=== PATIENT | female | born 1985 | race American Indian/Alaskan Native ===

== ENCOUNTER 2017-12-24 08:42 | Outpatient (CLI) | payer MEDICAID ==
[2017-12-24 09:26] LABS: Bilirubin,Urine NEG (Negative); Blood,Urine NEG (Negative); Color,Urine Yellow (Yellow); Protein,Urine <15 mg/dL mg/dL (Negative); RBC,Urine < 1.0 /HPF (0.0-6.0); Urobilinogen,Urine < 2.0 mg/dL (<2.0)
[2017-12-24 09:29] VITALS: BP 121/68
[2017-12-24 09:39] LABS: Amphetamine Screen,Urine PRESUMPTIVE NEGATIVE; Benzodiazepines Screen,Urine PRESUMPTIVE NEGATIVE; Methadone Screen,Urine PRESUMPTIVE NEGATIVE; Opiate Screen,Urine PRESUMPTIVE NEGATIVE
[2017-12-24 09:56] LABS: Cannabinoid Screen,Urine PRESUMPTIVE POSITIVE; Cocaine Screen,Urine PRESUMPTIVE POSITIVE
== END 2017-12-24 09:53 | disposition home or self-care (01) ==
LOC: TRG 08:42
PROVIDERS: ATTEND Obstetrics & Gynecology
DX: O47.02 False labor before 37 completed weeks of gestation, second trimester (principal); Z3A.25 25 weeks gestation of pregnancy
CPT/HCPCS: 59025; 80307; 81001

== ENCOUNTER 2018-02-26 14:46 | Outpatient (CLI) | payer MEDICAID ==
[2018-02-26 15:03] VITALS: BP 117/75
--- NOTE | 2018-02-26 17:33 | Ultrasound Report ---
FINAL REPORT EXAM: US OB > = 14 WEEKS FETUS HISTORY: well being TECHNIQUE: Ultrasound obstetrical transabdominal PRIORS: Correlation made to prior exam August 23, 2017 FINDINGS: Single live intrauterine gestation present in cephalic position and cardiac activity present with heart rate of 145 beats per minute Cervical length is 3.1 centimeters In the placenta is anterior and right lateral. Placenta is grade 1. No evidence for placental abruption. Following structures were seen and appear unremarkable, choroid plexus and lateral ventricles, stomach, kidneys, urinary bladder, diaphragm, four-chamber view of the heart, three-vessel cord and cord insert Visualized portions of the spine are unremarkable biometric measurements were obtained Biparietal diameter 35 weeks 0 days Head circumference 36 weeks 5 days Abdominal circumference 34 weeks 0 days Femur length 37 weeks 0 days Based on today's exam estimated gestational age is 35 weeks 5 days. There has been adequate interval growth growth percentile is 60 percent Estimated weight today is 2618 grams IMPRESSION: Single live intrauterine gestation demonstrating adequate interval growth No evidence for placental abruption
== END 2018-02-26 16:33 | disposition home or self-care (01) ==
LOC: TRG 14:46
PROVIDERS: ATTEND Obstetrics & Gynecology
DX: O47.03 False labor before 37 completed weeks of gestation, third trimester (principal); Z3A.34 34 weeks gestation of pregnancy
CPT/HCPCS: 59025; 76805

== ENCOUNTER 2018-03-29 11:58 | Outpatient (CLI) | payer MEDICAID ==
[2018-03-29 12:17] VITALS: BP 114/71
== END 2018-03-29 16:35 | disposition home or self-care (01) ==
LOC: TRG 11:58
PROVIDERS: ATTEND Obstetrics & Gynecology
DX: O47.1 False labor at or after 37 completed weeks of gestation (principal); Z3A.39 39 weeks gestation of pregnancy
CPT/HCPCS: 59025

== ENCOUNTER 2018-03-30 15:51 | Outpatient (CLI) | payer MEDICAID ==
[2018-03-30 16:57] VITALS: BP 126/65
== END 2018-03-30 19:15 | disposition left against medical advice (07) ==
LOC: TRG 15:51
PROVIDERS: ATTEND Obstetrics & Gynecology
DX: O47.1 False labor at or after 37 completed weeks of gestation (principal); Z3A.39 39 weeks gestation of pregnancy
CPT/HCPCS: 59025

== ENCOUNTER 2018-04-03 06:16 | Inpatient (IN) | payer MEDICAID ==
[2018-04-03] MEDS ORDERED: XYLOCAINE 2% INFILTRATI ONE (06:20)
[2018-04-03] MEDS ORDERED: SUBLIMAZE IV PRN (06:20)
[2018-04-03] MEDS ORDERED: BRETHINE SUB-Q PRN (06:20)
[2018-04-03] MEDS ORDERED: NARCAN 0.4 MG/1 ML IV PRN (06:20)
[2018-04-03] MEDS ORDERED: ePHEDrine SULFATE IV PRN (06:20)
[2018-04-03] MEDS ORDERED: BRETHINE IVP PRN (06:20)
[2018-04-03] MEDS ORDERED: MINERAL OIL PO PRN (06:20)
[2018-04-03] MEDS ORDERED: PITOCin/NS 20 UNIT/1000ML DRIP 20 UNITS/1,000 ML BAG IV SCH ×2 (07:00→08:00)
[2018-04-03] MEDS ORDERED: LACTATED RINGERS 1,000 ML IV SCH (07:00)
[2018-04-03 07:09] LABS: Hematocrit 29.9 % (30.3-42.9); Hemoglobin 9.6 gm/dl (10.1-14.3); Mean Corpuscular HGB Conc 32 % (30-34); Mean Corpuscular Volume 78 fl (79-97); Platelet Count 249 K/mm3 (140-440); Red Blood Count 3.85 M/mm3 (3.65-5.03); Red Cell Distribution Width 16.7 % (13.2-15.2)
[2018-04-03 07:10] LABS: Mean Corpuscular Hemoglobin 25 pg (28-32)
[2018-04-03] MEDS: NORCO 5/325 PO PRN (07:43)
[2018-04-03] MEDS ORDERED: TUCKS PAD TP PRN (08:00)
[2018-04-03] MEDS ORDERED: PHENERGAN PR PRN (08:00)
[2018-04-03] MEDS ORDERED: DERMOPLAST TP PRN (08:00)
[2018-04-03] MEDS ORDERED: PHENERGAN PO PRN (08:00)
[2018-04-03] MEDS ORDERED: LANSINOH TP PRN ×2 (08:00)
[2018-04-03] MEDS ORDERED: ZOFRAN IV PRN (08:00)
[2018-04-03] MEDS ORDERED: SODIUM CHLORIDE FLUSH SYRINGE 10 ML IV PRN (08:00)
[2018-04-03] MEDS ORDERED: TYLENOL PO PRN (08:00)
[2018-04-03] MEDS ORDERED: BENADRYL PO PRN (08:00)
--- NOTE | 2018-04-03 09:03 | History and Physical Report ---
History of Present Illness Date of examination: 04/03/18 Date of admission: 04/03/18 06:16 Chief complaint: s/p home delivery at 430a History of present illness: This is a at term delivered at home with delivery of fetus and placenta. she is a patient of [facility]. She denies any medical problems. labs reviewed GBS neg. She reports she started contractions and delivered with EMS. Past History Past Medical History: no pertinent history Past Surgical History: D&C, other (hernia repair) Family/Genetic History: none Social history: no significant social history, single. denies: smoking, alcohol abuse - Obstetrical History Expected Date of Delivery: 03/28/18 Actual Gestation: 40 Week(s) 6 Day(s) : 6 Para: 6 Hx # Term Pregnancies: 5 Number of Pregnancies: 0 Spontaneous Abortions: 0 Induced : 0 Number of Living Children: 5 Medications and Allergies Allergies Allergy/AdvReac Type Severity Reaction Status Date / Time No Known Allergies Allergy Verified 04/03/18 06:19 Home Medications Medication Instructions Recorded Confirmed Last Taken Type Pnv No.95/Ferrous Fum/Folic AC 1 each PO DAILY 12/24/17 04/03/18 12/17/17 History [Prenavite Tablet] Active Meds: Active Medications Acetaminophen (Tylenol) 650 mg PO Q4H PRN PRN Reason: Pain MILD(1-3)/Fever >100.5/MATAMOROS Acetaminophen/Hydrocodone Bitart ([place] 5/325) 2 each PO Q6H PRN PRN Reason: Pain, Moderate (4-6) Last Admin: 04/03/18 07:43 Dose: 2 each Benzocaine/Menthol (Dermoplast) 1 spray TP PRN PRN PRN Reason: Pain Bisacodyl (Dulcolax) 10 mg MD BID PRN PRN Reason: Constipation Diphenhydramine HCl (Benadryl) 25 mg PO Q6H PRN PRN Reason: Itching Diphtheria/Tetanus/Acell Pertussis (Boostrix) 0.5 ml IM .ONCE ONE Stop: 04/04/18 06:01 Ferrous Sulfate (Feosol) 325 mg PO BID DAVID Oxytocin/Sodium Chloride (Pitocin/Ns 20 Unit/1000ml Drip) 20 units in 1,000 mls @ 250 mls/hr IV DIRECT DAVID Last Admin: 04/03/18 07:42 Dose: 250 mls/hr Ibuprofen (Motrin) 600 mg PO Q6H [facility] Magnesium Hydroxide (Milk Of Magnesia) 30 ml PO HS PRN PRN Reason: Constipation Measles/Mumps/Rubella Vaccine Live (M-M-R Ii Vaccine) 0.5 ml SUB-Q .ONCE ONE Stop: 04/04/18 11:01 Multi-Ingredient Ointment (Lansinoh) 1 applic TP PRN PRN PRN Reason: Sore Nipples Multi-Ingredient Ointment (Lansinoh) 1 applic TP PRN PRN PRN Reason: dryness/cracking Naloxone HCl (Narcan 0.4 Mg/1 Ml) 0.1 mg IV Q2MIN PRN PRN Reason: Res Rate </= 8 or 02 SAT < 92% Ondansetron HCl (Zofran) 4 mg IV Q8H PRN PRN Reason: Nausea And Vomiting Promethazine HCl (Phenergan) 25 mg MD Q6H PRN PRN Reason: Nausea And Vomiting Promethazine HCl (Phenergan) 25 mg PO Q6H PRN PRN Reason: Nausea And Vomiting Sodium Chloride (Sodium Chloride Flush Syringe 10 Ml) 10 ml IV PRN PRN PRN Reason: flush Witch Rebekah/Glycerin (Tucks Pad) 1 each TP PRN PRN PRN Reason: Hemorrhoid/cleansing/soothing Review of Systems All systems: negative - Physical Exam Breasts: Positive: normal Cardiovascular: Regular rate, Normal S1 Lungs: Positive: Clear to auscultation, Normal air movement Abdomen: Positive: normal appearance, soft, normal bowel sounds. Negative: distention, tenderness, guarding Genitourinary (Female): Positive: normal external genitalia, normal perenium Vulva: both: normal Vagina: Positive: normal moisture Uterus: Positive: normal size, normal contour Adnexa: both: normal Anus/Rectum: Positive: normal perianal skin Extremities: Positive: normal Deep Tendon Reflex Grade: Normal +2 Results Result Diagrams: 04/03/18 06:40 Abnormal lab results 04/03/18 Range/Units 06:40 WBC 11.2 H (4.5-11.0) K/mm3 Hgb 9.6 L (10.1-14.3) gm/dl Hct 29.9 L (30.3-42.9) % MCV 78 L (79-97) fl MCH 25 L (28-32) pg RDW 16.7 H (13.2-15.2) % All other labs normal. Assessment and Plan A/P PPD#0 s/p home delivery of viable routine pp orders GBS neg evaluated perineum no lacs noted h/h 9.9 will add iron BID
--- NOTE | 2018-04-03 09:06 | Procedure Note ---
OB Delivery Note - Delivery Date of Delivery: 04/03/18 Surgeon: CHRIS MORALEZ - Vaginal Delivery presentation: vertex Intrapartum events: other(please specify) (Home delivery ) Delivery induction: none Delivery monitor: none Route of delivery: Delivery placenta: spontaneous Episiotomy: none Delivery laceration: none Anesthesia: none Delivery comments: patient delivered at home including baby and placenta. - A Gender: Female
[2018-04-03] MEDS: MOTRIN PO SCH ×2 (09:09→21:30)
[2018-04-03] MEDS ORDERED: DULCOLAX PR PRN (10:00)
[2018-04-03 11:59] LABS: Amphetamine Screen,Urine PRESUMPTIVE NEGATIVE; Benzodiazepines Screen,Urine PRESUMPTIVE NEGATIVE; Methadone Screen,Urine PRESUMPTIVE NEGATIVE; Opiate Screen,Urine PRESUMPTIVE NEGATIVE
[2018-04-03] MEDS ORDERED: PITOCin/NS 20 UNIT/1000ML DRIP 20,000 MILLIUNITS/1,000 ML BAG IV ONE (12:34)
[2018-04-03 12:48] LABS: Cannabinoid Screen,Urine PRESUMPTIVE POSITIVE; Cocaine Screen,Urine PRESUMPTIVE POSITIVE
[2018-04-03 18:57] LABS: Hemoglobin 7.9 gm/dl (10.1-14.3)
[2018-04-03] MEDS: FEOSOL PO SCH (21:30)
[2018-04-03] MEDS ORDERED: MILK OF MAGNESIA PO PRN (22:00)
[2018-04-04] MEDS: MOTRIN PO SCH ×2 (03:25→18:56)
[2018-04-04] MEDS ORDERED: BOOSTRIX IM ONE (06:00)
--- NOTE | 2018-04-04 08:34 | Progress Note ---
Assessment and Plan A/P PPD#1 s/p home delivery of viable infant routine pp orders seen by dfas and social service for + drugs consdier d/c home tomorrow Subjective - Subjective Date of service: 04/04/18 Principal diagnosis: s/p home delivery Interval history: This is a at term delivered at home with delivery of fetus and placenta. [facility] is a [facility]. She denies any medical problems. labs reviewed GBS neg. She reports she started contractions and delivered with EMS. Patient reports: appetite normal, voiding normally, pain well controlled, flatus , ambulating normally [place]: doing well, in NICU Objective - Vital Signs Latest vital signs: Vital Signs Temp Pulse Resp BP Pulse Ox 04/04/18 00:59 98.9 F 81 18 101/66 04/03/18 12:00 99.4 F 104 H 18 125/87 99 Intake and Output 04/03/18 04/04/18 04/04/18 23:59 07:59 15:59 Intake Total 720 180 Output Total 1600 Balance -880 180 Intake: Intake, Free Water 720 180 Output: Urine 1600 Indwelling Catheter 0 Void 1600 Other: Total, Output Amount 800 # Voids Void 1 - Exam Breasts: Present: normal Cardiovascular: Present: Regular rate, Normal S1 Lungs: Present: Clear to auscultation, Normal air movement Abdomen: Present: normal appearance, soft, normal bowel sounds. Absent: distention, tenderness, guarding Vulva: both: normal Uterus: Present: normal, firm, fundal height below umbilicus. Absent: bogginess , tenderness Extremities: Present: normal Deep Tendon Reflex Grade: Normal +2 - Labs Labs: Abnormal lab results 04/03/18 Range/Units 18:33 Hgb 7.9 L (10.1-14.3) gm/dl Hct 24.0 L (30.3-42.9) %
--- NOTE | 2018-04-04 08:36 | Discharge Summary ---
Providers - Providers Date of Admission: 04/03/18 06:16 Date of discharge: 04/04/18 Attending physician: HECTOR TURK 04/03/18 07:00 Consult to Furniture Rental Consultant [CONS] Routine Reason For Exam: assistance with , SNS Primary care physician: HECTOR TURK Hospitalization Reason for admission: IUP at term Delivery: Episiotomy: none Laceration: none Incision: normal Other procedures: none complications: none Discharge diagnosis: IUP at term delivered Condition at discharge: Good Disposition: DC-01 TO HOME OR SELFCARE Plan - Discharge Medications Prescriptions: Ferrous Sulfate 325 mg PO TID #60 tablet.dr - Provider Discharge Summary Activity: routine, no sex for 6 weeks, no strenuous exercise Diet: routine Instructions: routine Additional instructions: [] Smoking cessation referral if applicable(refer to patient education folder for contact #) [] Refer to [facility]'s [facility] Booklet Call your doctor immediately for: * Fever > 100.5 * Heavy vaginal bleeding ( >1 pad per hour) * Severe persistent headache * Shortness of breath * Reddened, hot, painful area to leg or breast * Drainage or odor from incision. * Keep incision clean and dry at all times and follow doctor's instructions regarding bathing/showering - Follow up plan Follow up: HECTOR TURK MD [Primary Care Provider] - 05/01/18
[2018-04-04] MEDS: FEOSOL PO SCH ×2 (10:53→21:55)
[2018-04-04] MEDS ORDERED: M-M-R II VACCINE SUB-Q ONE (11:00)
[2018-04-04] MEDS: NORCO 5/325 PO PRN (18:57)
[2018-04-05] MEDS: MOTRIN PO SCH (01:15)
[2018-04-05 09:49] VITALS: BP 130/84
[2018-04-05] MEDS: FEOSOL PO SCH (10:13)
== END 2018-04-05 11:55 | disposition home or self-care (01) | DRG 776 ==
LOC: LD 06:16 → OB 08:43
PROVIDERS: ADMIT Obstetrics & Gynecology; ATTEND Obstetrics & Gynecology
PROC: 3E0234Z Introduction of Serum, Toxoid and Vaccine into Muscle, Percutaneous Approach (ICD-10-PCS; principal; 2018-04-04)
DX: Z39.0 Encounter for care and examination of mother immediately after delivery (principal); Z23 Encounter for immunization
CPT/HCPCS: 36415; 80307; 85014; 85018; 85027; 86592; 86850; 86900; 86901; J2590

== ENCOUNTER 2019-01-18 03:23 | Emergency (ER) | payer MEDICAID ==
[~2019-01-18 03:23] MED LIST: LACTATED RINGERS 1,000 ML IV ONE
[2019-01-18 03:59] LABS: Bilirubin,Urine NEG (Negative); Blood,Urine NEG (Negative); Color,Urine Straw (Yellow); Protein,Urine <15 mg/dL mg/dL (Negative); RBC,Urine < 1.0 /HPF (0.0-6.0); Urobilinogen,Urine < 2.0 mg/dL (<2.0)
[2019-01-18] MEDS ORDERED: ASPIRIN PO ONE (04:54)
[2019-01-18 18:56] VITALS: BP 122/72
== END 2019-01-18 04:57 ==
LOC: ED 03:23 → EDSTATUS 03:24 → ED 03:27
DX: R07.89 Other chest pain (principal); R05 Cough; Z53.21 Procedure and treatment not carried out due to patient leaving prior to being seen by health care provider
CPT/HCPCS: 81001; 93005; 93010

== ENCOUNTER 2020-09-19 12:41 | Emergency (ER) | payer MEDICAID ==
--- NOTE | 2020-09-19 13:07 | Event Note ---
ED Screening Note Date of service: 09/19/20 Time: 13:06 ED Screening Note: 12 wks bleeding and lower abdominal cramping, started saturday. This initial assessment/diagnostic orders/clinical plan/treatment(s) is/are subject to change based on patients health status, clinical progression and re- assessment by fellow clinical providers in the ED. Further treatment and workup at subsequent clinical providers discretion. Patient/guardian urged not to elope from the ED as their condition may be serious if not clinically assessed and managed. Initial orders include: cbc, cmp, urinalysis, type and screen, HCG quant, ultrasound.
[2020-09-19 13:35] LABS: Hematocrit 26.3 % (30.3-42.9); Hemoglobin 8.4 gm/dl (10.1-14.3); Mean Corpuscular HGB Conc 32 % (30-34); Platelet Count 406 K/mm3 (140-440); Red Blood Count 4.49 M/mm3 (3.65-5.03)
[2020-09-19 13:44] LABS: Mean Corpuscular Volume 58 fl (79-97); Red Cell Distribution Width 22.9 % (13.2-15.2)
[2020-09-19 14:08] LABS: Alanine Aminotransferase 13 units/L (7-56); Albumin 4.2 g/dL (3.9-5); Blood Urea Nitrogen 6 mg/dL (7-17); Calcium 8.8 mg/dL (8.4-10.2); Hemolysis Index 0
[2020-09-19 14:15] LABS: BUN/Creatinine Ratio 9
--- NOTE | 2020-09-19 14:22 | Emergency Department Report ---
ED HPI - General Chief complaint: Vaginal Bleeding Stated complaint: POSS MISCARRIAGE Time Seen by Provider: 09/19/20 13:59 Source: patient Mode of arrival: Ambulatory Limitations: No Limitations - History of Present Illness Initial comments: 35-year-old -[place] female patient presents with complaints of lower abdominal cramping and bleeding in x6 days. She describes the pain as cramping and rates it as a 6/10 in severity. She denies any passing of clots, hematuria/dysuria/urinary frequency, vaginal discharge, dyspareunia, nausea/vomiting/diarrhea, or fever/chills/sweats. Patient states she is 12 weeks based on her last menstrual cycle. She states she is G7, . She has an appointment scheduled with her [employer]ET [employer] WORKER HELPER for the second week of September. - Related Data Home Medications Medication Instructions Recorded Confirmed Last Taken Pnv No.95/Ferrous Fum/Folic AC 1 each PO DAILY 12/24/17 04/03/18 12/17/17 [Prenavite Tablet] Previous Rx's Medication Instructions Recorded Last Taken Type Ferrous Sulfate 325 mg PO TID #60 tablet. 04/04/18 Unknown Rx Ferrous Sulfate 325 mg PO TID #60 tablet. 04/04/18 Unknown Rx Ibuprofen [Motrin] 600 mg PO Q8H PRN #30 tablet 04/04/18 Unknown Rx Ferrous Sulfate [Iron 325 MG] 325 mg PO QDAY #30 tablet 09/19/20 Unknown Rx Allergies Allergy/AdvReac Type Severity Reaction Status Date / Time No Known Allergies Allergy Verified 01/18/19 02:24 ED Review of Systems ROS: Stated complaint: POSS MISCARRIAGE Other details as noted in HPI Constitutional: denies: chills, fever Respiratory: denies: cough, shortness of breath Cardiovascular: denies: chest pain Endocrine: denies: excessive sweating Gastrointestinal: abdominal pain. denies: nausea, vomiting, diarrhea, constipation Musculoskeletal: denies: back pain Skin: denies: rash, change in color Hematological/Lymphatic: denies: easy bleeding, easy bruising ED Past Medical Hx - Past Medical History Previous Medical History?: Yes Hx Hypertension: No Hx Diabetes: No Hx Deep Vein Thrombosis: No Hx Renal Disease: No Hx Sickle Cell Disease: Yes (trait) Hx Seizures: Yes (8 yrs ago) Hx Asthma: No Hx HIV: No - Surgical History Past Surgical History?: Yes Additional Surgical History: Umbilical Hernia Repair, D&C 2015 - Social History Smoking Status: Unknown if ever smoked Substance Use Type: None - Medications Home Medications: Home Medications Medication Instructions Recorded Confirmed Last Taken Type Pnv No.95/Ferrous Fum/Folic AC 1 each PO DAILY 12/24/17 04/03/18 12/17/17 History [Prenavite Tablet] Ferrous Sulfate 325 mg PO TID #60 tablet. 04/04/18 Unknown Rx Ferrous Sulfate 325 mg PO TID #60 tablet. 04/04/18 Unknown Rx Ibuprofen [Motrin] 600 mg PO Q8H PRN #30 tablet 04/04/18 Unknown Rx Ferrous Sulfate [Iron 325 MG] 325 mg PO QDAY #30 tablet 09/19/20 Unknown Rx ED Physical Exam - General Limitations: No Limitations General appearance: alert, in no apparent distress - Head Head exam: Present: atraumatic, normocephalic - Eye Eye exam: Present: normal appearance. Absent: scleral icterus - Neck Neck exam: Present: normal inspection - Respiratory Respiratory exam: Absent: respiratory distress - Cardiovascular Cardiovascular Exam: Present: regular rate, normal rhythm - GI/Abdominal GI/Abdominal exam: Present: soft, normal bowel sounds. Absent: distended, tenderness, guarding, rebound, rigid - Extremities Exam Extremities exam: Present: full ROM - Back Exam Back exam: Present: normal inspection - Neurological Exam Neurological exam: Present: alert, oriented X3 - Psychiatric Psychiatric exam: Present: normal affect, normal mood - Skin Skin exam: Present: warm, dry, intact, normal color. Absent: rash, cyanosis, diaphoretic, pallor ED Medical Decision Making - Lab Data Result diagrams: 09/19/20 13:01 09/19/20 13:01 - Radiology Data Radiology results: report reviewed EXAMINATION: US OB transvaginal, US OB <= 14 weeks fetus HISTORY: vaginal bleeding and pain TECHNIQUE: Multiple transabdominal and endovaginal longitudinal and transverse 2D real time ultrasound images through the pelvis were acquired. In addition, power Doppler was performed. FINDINGS: There is an intrauterine gestational sac, with mean sac diameter measuring 0.87 cm, corresponding to gestational age of 5 weeks and 5 days. This is associated with yolk sac. No pole is identified. Uterus is otherwise unremarkable. 2.1 cm right ovarian corpus luteum is present. Ovaries are otherwise normal sonographic appearance. No free fluid is seen. IMPRESSION: 1. Intrauterine gestational sac with yolk sac. Mean sac diameter measures 0.87 cm, corresponding to a gestational age of 5 weeks and 5 days. No pole is identified at this time. Continued sonographic and/or beta hCG follow-up, as clinically indicated. 2. Right ovarian corpus luteum cyst. - Medical Decision Making 35-year-old -[place] female patient presents with complaints of lower abdominal cramping and bleeding in x6 days. She describes the pain as cramping and rates it as a 6/10 in severity. She denies any passing of clots, hematuria/dysuria/urinary frequency, vaginal discharge, dyspareunia, nausea/vomi ting/diarrhea, or fever/chills/sweats. Patient states she is 12 weeks based on her last menstrual cycle. She states she is G7, . She has an appointment scheduled with her [employer] WORK[employer] HELPER for the second week of September. No abdominal tenderness noted on exam. CBC shows anemia with a hemoglobin of 8.3, patient states history of this. No significant abnormalities noted on CMP or UA. Ultrasound shows 5-week 5-day IUP without pole or heart rate. Beta-hCG is in the 6600s and correlates with ultrasound findings. Patient to follow-up with her [employer] WORK[employer] HELPER as scheduled. Recommend OTC Tylenol as needed for pain. Discussed signs and symptoms that should prompt immediate return to the emergency department in detail with patient who verbalizes understanding. Critical care attestation.: If time is entered above; I have spent that time in minutes in the direct care of this critically ill patient, excluding procedure time. ED Disposition Clinical Impression: Vaginal bleeding affecting early , Abdominal cramping affecting Anemia Qualifiers: Anemia type: iron deficiency Iron deficiency anemia type: other iron deficiency Qualified Code(s): D50.8 - Other iron deficiency anemias Disposition: - TO HOME OR SELFCARE Is pt being admited?: No Condition: Stable Instructions: and Anemia, Abdominal Pain During , Vaginal Bleeding During , First Trimester, [id number] Additional Instructions: Please follow-up with your [employer]ET [employer] WORKER HELPER as scheduled Prescriptions: Ferrous Sulfate [Iron 325 MG] 325 mg PO QDAY #30 tablet
[2020-09-19 15:10] LABS: Bilirubin,Urine NEG (Negative); Blood,Urine LG (Negative); Color,Urine Yellow (Yellow); Hyaline Casts,Urine 1 /LPF; Protein,Urine <15 mg/dL mg/dL (Negative); Urobilinogen,Urine < 2.0 mg/dL (<2.0)
[2020-09-19 15:19] LABS: Total Cells Counted 100
[2020-09-19 15:20] LABS: Anisocytosis 1+; Basophils % (Manual) 0 % (0.0-1.8); Hypochromasia 2+
[2020-09-19 15:21] LABS: Platelet Estimate Consistent w Auto; Schistocytes Few
--- NOTE | 2020-09-19 15:30 | Ultrasound Report ---
EXAMINATION: US OB transvaginal, US OB <= 14 weeks fetus HISTORY: vaginal bleeding and pain TECHNIQUE: Multiple transabdominal and endovaginal longitudinal and transverse 2D real time ultrasoun d images through the pelvis were acquired. In addition, power Doppler was performed. FINDINGS: There is an intrauterine gestational sac, with mean sac diameter measuring 0.87 cm, corresponding to gestational age of 5 weeks and 5 days. This is associated with yolk sac. No pole is identified. Uterus is otherwise unremarkable. 2.1 cm right ovarian corpus luteum is present. Ovaries are otherwise normal sonographic appearance. No free fluid is seen. IMPRESSION: 1. Intrauterine gestational sac with yolk sac. Mean sac diameter measures 0.87 cm, corresponding to a gestational age of 5 weeks and 5 days. No pole is identified at this time. Continued sonograph ic and/or beta hCG follow-up, as clinically indicated. 2. Right ovarian corpus luteum cyst. Signer Name: Brad Renner MD Signed: 09/19/2020 3:26 PM Workstation Name: [id number]
[2020-09-19] MEDS ORDERED: ACETAMINOPHEN 500 MG TAB PO ONE (15:39)
[2020-09-19 15:46] VITALS: BP 113/77
== END 2020-09-19 15:55 | disposition home or self-care (01) ==
LOC: ED 12:41
DX: O99.011 Anemia complicating pregnancy, first trimester (principal); O20.9 Hemorrhage in early pregnancy, unspecified; O26.891 Other specified pregnancy related conditions, first trimester; R10.9 Unspecified abdominal pain; Z3A.12 12 weeks gestation of pregnancy
CPT/HCPCS: 36415; 76801; 76817; 80053; 81001; 84702; 85007; 85025; 86900; 86901